=== PATIENT | female | born 1955 | race African-American/Black ===

== ENCOUNTER 2025-03-03 09:37 | Inpatient (IN) | payer OTHER ==
[~2025-03-03] VITALS: Ht 167.6 cm; Wt 74.8 kg
[2025-03-03 09:43] VITALS: O2SAT 99
[2025-03-03 10:23] LABS: BASOPHILS % 0.3 % (0.0-2.0); EOSINOPHILS % 0.3 % (0.0-5.0); HEMATOCRIT. 35.5 % (36.0-48.0); HEMOGLOBIN. 11.7 g/dL (12.0-16.0); LYMPHOCYTES % 7.2 % (20.0-50.0); MEAN PLATELET VOLUME 9.7 fl (7.4-10.4); MONOCYTES % 6.0 % (2.0-8.0); NEUTROPHILS % 86.2 % (40.0-76.0); PLATELET 177 x1000/uL (130-400); RED BLOOD CELL COUNT 4.21 mill/uL (4.2-5.4); RED CELL DISTRIBUTION WIDTH 15.7 % (11.6-14.6)
[2025-03-03 10:34] LABS: CREATININE 1.6 mg/dL (0.6-1.0)
[2025-03-03 10:35] LABS: TROPONIN I HIGH SENSITIVITY 9 ng/L (3.0-34); UREA NITROGEN BLOOD 20 mg/dL (9-23)
[2025-03-03 10:36] LABS: ASPARTATE AMINOTRANSFERASE 20 IU/L (<34); BILIRUBIN DIRECT 0.2 mg/dL (<=3.0)
[2025-03-03 10:37] LABS: BILIRUBIN TOTAL 0.6 mg/dL (0.1-1.0); PROTEIN TOTAL 6.8 g/dL (6.0-8.3)
[2025-03-03] MEDS: SODIUM CHLORIDE 0.9% 1,000 ML IV ONE (11:44)
[2025-03-03 12:00] VITALS: BP 109/45; PULSE 43; RESP 18; TEMP 36.5; O2SAT 95
[2025-03-03 12:35] VITALS: BP 109/45; PULSE 43; RESP 18; TEMP 36.5292
[2025-03-03] MEDS ORDERED: GUAIFENESIN 200MG/10ML SUGAR FREE UDC PO PRN (12:45)
[2025-03-03] MEDS ORDERED: CLONIDINE 0.1MG TABLET PO PRN (12:45)
[2025-03-03] MEDS ORDERED: IPRATROPIUM/ALBUTEROL 0.5-3(2.5)MG/3ML NEB HHN PRN (12:45)
[2025-03-03] MEDS ORDERED: ACETAMINOPHEN 325MG TABLET PO PRN (12:45)
[2025-03-03] MEDS ORDERED: DOCUSATE SODIUM 100MG CAPSULE PO PRN (12:45)
[2025-03-03] MEDS ORDERED: PANTOPRAZOLE SODIUM 40 MG/VIAL IV SCH (12:52)
[2025-03-03] MEDS: DEXT 5%/0.45% NACL 1000ML 1,000 ML IV SCH ×2 (12:53→17:44)
[2025-03-03] MEDS ORDERED: LORAZEPAM 2MG/ML UD SYRINGE IV PRN ×2 (13:00→17:30)
[2025-03-03 14:08] LABS: BG BASE EXCESS -5.2 mmol/L (-2.0-3.0); BG CARBOXYHEMOGLOBIN 0.4 % (0.5-1.5); BG DEOXYHEMOGLOBIN 4.3 % (0.0-5.0); BG FRACTION INSPIRED OXYGEN 21; BG HCO3 ACT 19.4 mmol/L (21.0-28.0); BG METHEMOGLOBIN 0.3 % (0.5-1.5); BG OXYGEN SATURATION 95.7 % (94.0-98.0); BG OXYHEMOGLOBIN 95.0 % (94.0-98.0); BG PCO2 34.3 mmHg (32.0-45.0); BG PH 7.370 (7.350-7.450); BG PO2 79.3 mmHg (83.0-108.0); BG SAMPLE SITE LEFT RADIAL; BG TOTAL HEMOGLOBIN 11.4 g/dL (12.0-16.0); BG VENT MODE ROOM AIR
[2025-03-03 14:56] LABS: FOLIC ACID (FOLATE) SERUM > 20.00 ng/mL (>5.38); VITAMIN B12 SERUM 833 pg/mL (211-911)
[2025-03-03] MEDS: PANTOPRAZOLE SODIUM 40 MG/VIAL IV SCH (17:44)
[2025-03-03] MEDS ORDERED: DEXT 5%/0.9% NACL 1,000 ML IV SCH (17:45)
[2025-03-03] MEDS: ENOXAPARIN 40MG/0.4ML SYR SUBCUT SCH (17:46)
[2025-03-03 20:00] VITALS: BP 126/60; PULSE 50; RESP 19; TEMP 36.3; O2SAT 95
[2025-03-03] MEDS: CEFTRIAXONE 1GM/50ML 50 ML IV SCH (22:42)
[2025-03-03] MEDS: AZITHROMYCIN 500MG/250ML 250 ML IV SCH (22:42)
[2025-03-04] VITALS (10 sets, daily range): BP systolic 91–142; BP diastolic 53–103; PULSE 43–49; RESP 13–18; TEMP 36.1–36.8; O2SAT 94–100
[2025-03-04 00:37] LABS: TROPONIN I HIGH SENSITIVITY 13 ng/L (3.0-34)
[2025-03-04 01:33] LABS: CLARITY URINE CLEAR (CLEAR); COLOR URINE YELLOW (YELLOW); GLUCOSE URINE NEGATIVE (NEGATIVE); KETONES URINE 1+ (NEGATIVE); LEUKOCYTE ESTERASE URINE 2+ (NEGATIVE); NITRITE URINE POSITIVE (NEGATIVE); OCCULT BLOOD URINE TRACE (NEGATIVE); PH URINE 6.5 (4.5-8.0); PROTEIN URINE 1+ (NEGATIVE); SPECIFIC GRAVITY URINE 1.017 (1.005-1.030); UROBILINOGEN URINE 1.0 E.U./dL (0.2-1.0)
[2025-03-04 01:49] LABS: BACTERIA URINE 1+; SQUAMOUS EPITHELIAL CELL URINE 2+ /lpf (RARE/1+)
[2025-03-04 01:55] LABS: *AMPHETAMINES SCREEN URINE NEGATIVE (NEGATIVE); *BARBITURATES SCREEN URINE NEGATIVE (NEGATIVE); *BENZODIAZEPINES SCREEN URINE NEGATIVE (NEGATIVE); *COCAINE SCREEN URINE NEGATIVE (NEGATIVE); CANNABINOID URINE SCREEN NEGATIVE (NEGATIVE); ECSTASY MDMA SCREEN URINE CONF.TEST INDICATED (NEGATIVE); METHADONE URINE SCREEN NEGATIVE (NEGATIVE); OPIATES URINE SCREEN NEGATIVE (NEGATIVE); PHENCYCLIDINE URINE SCREEN NEGATIVE (NEGATIVE)
[2025-03-04 08:00] LABS: HEMATOCRIT. 31.0 % (36.0-48.0); HEMOGLOBIN. 10.1 g/dL (12.0-16.0); MEAN PLATELET VOLUME 10.4 fl (7.4-10.4); PLATELET 149 x1000/uL (130-400); RED BLOOD CELL COUNT 3.70 mill/uL (4.2-5.4); RED CELL DISTRIBUTION WIDTH 15.2 % (11.6-14.6)
[2025-03-04 08:20] LABS: CREATININE 1.3 mg/dL (0.6-1.0); UREA NITROGEN BLOOD 16.0 mg/dL (9-23)
[2025-03-04 08:21] LABS: T4 FREE 0.94 ng/dL (0.89-1.76)
[2025-03-04] MEDS ORDERED: LEVETIRACETAM 1,000MG in NACL 100ML PREMIX IV ONE (10:15)
[2025-03-04 10:45] LABS: BG BASE EXCESS -1.0 mmol/L (-2.0-3.0); BG CARBOXYHEMOGLOBIN 0.9 % (0.5-1.5); BG DEOXYHEMOGLOBIN 3.6 % (0.0-5.0); BG FRACTION INSPIRED OXYGEN 21; BG HCO3 ACT 22.5 mmol/L (21.0-28.0); BG METHEMOGLOBIN 0.3 % (0.5-1.5); BG OXYGEN SATURATION 96.4 % (94.0-98.0); BG OXYHEMOGLOBIN 95.2 % (94.0-98.0); BG PCO2 33.4 mmHg (32.0-45.0); BG PH 7.446 (7.350-7.450); BG PO2 78.7 mmHg (83.0-108.0); BG SAMPLE SITE LEFT RADIAL; BG TOTAL HEMOGLOBIN 11.4 g/dL (12.0-16.0); BG VENT MODE ROOM AIR
[2025-03-04 11:15] LABS: BAND% 3.0 % (1.0-6.0); LYMPHOCYTES % MANUAL 5.0 % (20.0-60.0); MONOCYTES % MANUAL 6.0 % (2.0-8.0); NEUTROPHILS % MANUAL 86.0 % (45.0-75.0); PLATELET ESTIMATE NORMAL
[2025-03-04] MEDS: LEVETIRACETAM 1000MG PREMIX 100 ML IV NR (12:21)
[2025-03-04] MEDS: SODIUM CHLORIDE 0.9% 1,000 ML IV SCH (12:21)
[2025-03-04] MEDS: POTASSIUM CHLORIDE 20MEQ TABLET SR PO SCH (12:21)
[2025-03-04] MEDS: THIAMINE HCL 200 MG in SODIUM CHLORIDE 0.9% 98 ML IV SCH (12:23)
[2025-03-04 15:04] LABS: PHOSPHORUS 2.5 mg/dL (2.5-4.9)
[2025-03-04] MEDS: CEFTRIAXONE 1GM/50ML 50 ML IV SCH (20:13)
[2025-03-04] MEDS: LEVETIRACETAM 500MG PREMIX 100ML IV SCH (20:13)
[2025-03-04] MEDS: AZITHROMYCIN 500MG/250ML 250 ML IV SCH (20:14)
[2025-03-04] MEDS ORDERED: LEVETIRACETAM 500MG in NACL 100ML PREMIX IV SCH (21:00)
[2025-03-05] VITALS (20 sets, daily range): BP systolic 102–140; BP diastolic 61–96; PULSE 41–71; RESP 12–24; TEMP 36.2–37.1; O2SAT 96–100
[2025-03-05 07:03] LABS: CREATININE 1.1 mg/dL (0.6-1.0)
[2025-03-05 07:05] LABS: UREA NITROGEN BLOOD 9 mg/dL (9-23)
[2025-03-05 07:06] LABS: PHOSPHORUS 2.1 mg/dL (2.5-4.9)
[2025-03-05 07:18] LABS: BASOPHILS % 0.3 % (0.0-2.0); EOSINOPHILS % 1.0 % (0.0-5.0); HEMATOCRIT. 32.1 % (36.0-48.0); HEMOGLOBIN. 10.2 g/dL (12.0-16.0); LYMPHOCYTES % 11.5 % (20.0-50.0); MEAN PLATELET VOLUME 10.7 fl (7.4-10.4); MONOCYTES % 7.0 % (2.0-8.0); NEUTROPHILS % 80.2 % (40.0-76.0); PLATELET 115 x1000/uL (130-400); RED BLOOD CELL COUNT 3.71 mill/uL (4.2-5.4); RED CELL DISTRIBUTION WIDTH 16.3 % (11.6-14.6)
[2025-03-05] MEDS: POTASSIUM PHOSPHATE 30 MMOL in DEXT 5% WATER 490 ML IV NR (11:50)
[2025-03-05] MEDS: QUETIAPINE FUMARATE 25MG TABLET PO SCH (20:42)
[2025-03-06] VITALS (13 sets, daily range): BP systolic 111–153; BP diastolic 66–90; PULSE 64–78; RESP 12–24; TEMP 36.3–37.7; O2SAT 97–100
[2025-03-06 05:44] LABS: CREATININE 1.1 mg/dL (0.6-1.0)
[2025-03-06 05:45] LABS: UREA NITROGEN BLOOD 7 mg/dL (9-23)
[2025-03-06 05:47] LABS: PHOSPHORUS 2.9 mg/dL (2.5-4.9)
[2025-03-06 05:58] LABS: BASOPHILS % 0.4 % (0.0-2.0); EOSINOPHILS % 1.2 % (0.0-5.0); HEMATOCRIT. 36.1 % (36.0-48.0); HEMOGLOBIN. 11.4 g/dL (12.0-16.0); LYMPHOCYTES % 11.6 % (20.0-50.0); MEAN PLATELET VOLUME 10.9 fl (7.4-10.4); MONOCYTES % 6.4 % (2.0-8.0); NEUTROPHILS % 80.4 % (40.0-76.0); PLATELET 133 x1000/uL (130-400); RED BLOOD CELL COUNT 4.19 mill/uL (4.2-5.4); RED CELL DISTRIBUTION WIDTH 16.6 % (11.6-14.6)
[2025-03-06] MEDS ORDERED: IOHEXOL-300 100 ML BOTTLE ONE (07:02)
[2025-03-06] MEDS: KCL 20MEQ/100ML X 2 FOR TOTAL KCL 40MEQ/200ML IV SCH (12:53)
[2025-03-06] MEDS ORDERED: POTASSIUM CHLORIDE 40 MEQ in DEXT 5% WATER 230 ML IV SCH (13:00)
[2025-03-06] MEDS: DOCUSATE SODIUM SUGAR FREE 100MG/10ML UDC NG PRN (17:54)
[2025-03-07] VITALS (12 sets, daily range): BP systolic 111–167; BP diastolic 71–100; PULSE 70–81; RESP 14–17; TEMP 36.6–37; O2SAT 94–100
[2025-03-07 05:37] LABS: CREATININE 1.1 mg/dL (0.6-1.0)
[2025-03-07 05:38] LABS: UREA NITROGEN BLOOD 9 mg/dL (9-23)
[2025-03-07 05:40] LABS: PHOSPHORUS 3.2 mg/dL (2.5-4.9)
[2025-03-07 05:42] LABS: T4 FREE 0.85 ng/dL (0.89-1.76)
[2025-03-07 05:59] LABS: BASOPHILS % 0.5 % (0.0-2.0); EOSINOPHILS % 0.9 % (0.0-5.0); HEMATOCRIT. 33.8 % (36.0-48.0); HEMOGLOBIN. 10.9 g/dL (12.0-16.0); LYMPHOCYTES % 7.9 % (20.0-50.0); MEAN PLATELET VOLUME 11.1 fl (7.4-10.4); MONOCYTES % 7.9 % (2.0-8.0); NEUTROPHILS % 82.8 % (40.0-76.0); PLATELET 135 x1000/uL (130-400); RED BLOOD CELL COUNT 4.03 mill/uL (4.2-5.4); RED CELL DISTRIBUTION WIDTH 16.2 % (11.6-14.6)
[2025-03-07] MEDS: DEXTROSE 5% WATER 1,000 ML IV SCH (06:16)
[2025-03-07] MEDS: ACETAMINOPHEN 325MG TABLET PO PRN (10:49)
[2025-03-07] MEDS: LORAZEPAM 2MG/ML UD SYRINGE IV PRN (15:03)
[2025-03-07] MEDS: DOXYCYCLINE 100MG/100ML 100 ML IV SCH (17:04)
[2025-03-08] VITALS (12 sets, daily range): BP systolic 105–163; BP diastolic 69–120; PULSE 65–73; RESP 11–22; TEMP 36.2–37; O2SAT 95–100
[2025-03-08] MEDS: FAMOTIDINE 20MG/2ML VIAL IV SCH (10:24)
[2025-03-08 19:27] LABS: SODIUM URINE RANDOM 72 mEq/L
[2025-03-08] MEDS ORDERED: LORAZEPAM 2MG/ML UD SYRINGE IV PRN (20:15)
[2025-03-08 20:36] LABS: OSMOLALITY URINE 338 mOsm/kg (500-850)
[2025-03-09] VITALS (12 sets, daily range): BP systolic 128–155; BP diastolic 69–98; PULSE 58–77; RESP 12–19; TEMP 36.3–37.2; O2SAT 97–100
[2025-03-09] MEDS: LORAZEPAM 2MG/ML UD SYRINGE IV PRN (02:20)
[2025-03-09 04:08] LABS: LITHIUM SERUM 2.2 mmol/L (0.5-1.2)
[2025-03-09 07:33] LABS: BASOPHILS % 0.8 % (0.0-2.0); EOSINOPHILS % 3.6 % (0.0-5.0); HEMATOCRIT. 32.0 % (36.0-48.0); HEMOGLOBIN. 10.3 g/dL (12.0-16.0); LYMPHOCYTES % 17.6 % (20.0-50.0); MEAN PLATELET VOLUME 11.8 fl (7.4-10.4); MONOCYTES % 5.9 % (2.0-8.0); NEUTROPHILS % 72.1 % (40.0-76.0); PLATELET 124 x1000/uL (130-400); RED BLOOD CELL COUNT 3.77 mill/uL (4.2-5.4); RED CELL DISTRIBUTION WIDTH 16.6 % (11.6-14.6)
[2025-03-09 07:52] LABS: CREATININE 0.9 mg/dL (0.6-1.0); UREA NITROGEN BLOOD 12 mg/dL (9-23)
[2025-03-09 07:54] LABS: PHOSPHORUS 2.9 mg/dL (2.5-4.9)
[2025-03-09] MEDS: QUETIAPINE FUMARATE 25MG TABLET PO SCH (09:46)
[2025-03-09] MEDS: POTASSIUM CHLORIDE 20MEQ/PACKET PO NR (10:21)
[2025-03-10] VITALS (12 sets, daily range): BP systolic 109–159; BP diastolic 85–111; PULSE 57–80; RESP 11–21; TEMP 36.6–37.1; O2SAT 89–100
[2025-03-10 07:25] LABS: BASOPHILS % 0.6 % (0.0-2.0); HEMOGLOBIN. 10.4 g/dL (12.0-16.0)
[2025-03-10 07:27] LABS: EOSINOPHILS % 2.6 % (0.0-5.0); HEMATOCRIT. 31.4 % (36.0-48.0); LYMPHOCYTES % 18.0 % (20.0-50.0); MEAN PLATELET VOLUME 11.3 fl (7.4-10.4); MONOCYTES % 8.5 % (2.0-8.0); NEUTROPHILS % 70.3 % (40.0-76.0); PLATELET 143 x1000/uL (130-400); RED BLOOD CELL COUNT 3.78 mill/uL (4.2-5.4); RED CELL DISTRIBUTION WIDTH 16.2 % (11.6-14.6)
[2025-03-10] MEDS ORDERED: LITHTAB PO (07:28)
[2025-03-10] MEDS ORDERED: CARB-32 MT (07:28)
[2025-03-10] MEDS ORDERED: VENL225T3 PO (07:28)
[2025-03-10] MEDS ORDERED: TRAZ-252 MT (07:28)
[2025-03-10] MEDS ORDERED: CARV12.545 MT (07:28)
[2025-03-10] MEDS ORDERED: BUPR100T13 PO (07:28)
[2025-03-10 07:52] LABS: CREATININE 1.0 mg/dL (0.6-1.0); UREA NITROGEN BLOOD 13 mg/dL (9-23)
[2025-03-10 07:54] LABS: PHOSPHORUS 4.1 mg/dL (2.5-4.9)
[2025-03-10 08:02] LABS: INR 1.1
[2025-03-10] MEDS: MAGNESIUM 2 G PREMIX 50 ML IV SCH (15:21)
[2025-03-11] VITALS (12 sets, daily range): BP systolic 125–157; BP diastolic 83–120; PULSE 53–81; RESP 13–19; TEMP 36.1–37.2; O2SAT 74–100
[2025-03-11 06:48] LABS: BASOPHILS % 0.7 % (0.0-2.0); EOSINOPHILS % 2.9 % (0.0-5.0); HEMATOCRIT. 32.0 % (36.0-48.0); HEMOGLOBIN. 10.4 g/dL (12.0-16.0); LYMPHOCYTES % 19.4 % (20.0-50.0); MEAN PLATELET VOLUME 11.5 fl (7.4-10.4); MONOCYTES % 10.2 % (2.0-8.0); NEUTROPHILS % 66.8 % (40.0-76.0); PLATELET 136 x1000/uL (130-400); RED BLOOD CELL COUNT 3.80 mill/uL (4.2-5.4); RED CELL DISTRIBUTION WIDTH 16.0 % (11.6-14.6)
[2025-03-11 07:02] LABS: UREA NITROGEN BLOOD 12 mg/dL (9-23)
[2025-03-11 07:03] LABS: PHOSPHORUS 3.8 mg/dL (2.5-4.9)
[2025-03-11 07:09] LABS: LITHIUM SERUM 0.3 mmol/L (0.5-1.2)
[2025-03-11 07:47] LABS: CREATININE 0.4 mg/dL (0.6-1.0)
[2025-03-11] MEDS ORDERED: LIDOCAINE HCL 1% 10 MG/ML 10ML VIAL ONE (08:06)
[2025-03-11] MEDS: HALOPERIDOL 5MG TABLET PO NR (09:18)
[2025-03-11] MEDS: HALOPERIDOL LACTATE 5MG/ML VIAL IM NR (09:38)
[2025-03-11 09:46] LABS: CSF APPEARANCE CLEAR (CLEAR); CSF TOTAL VOLUME 25.0 mL
[2025-03-11 10:06] LABS: GLUCOSE CSF 63 mg/dL (41-75)
[2025-03-12] VITALS: BP 162/135; PULSE 80; RESP 17; TEMP 36.3
[2025-03-12 04:00] VITALS: BP 146/95; PULSE 79; RESP 12; TEMP 37.1; O2SAT 98
[2025-03-12 07:09] LABS: BASOPHILS % 0.6 % (0.0-2.0); EOSINOPHILS % 2.4 % (0.0-5.0); HEMATOCRIT. 33.2 % (36.0-48.0); HEMOGLOBIN. 10.6 g/dL (12.0-16.0); LYMPHOCYTES % 19.6 % (20.0-50.0); MEAN PLATELET VOLUME 11.9 fl (7.4-10.4); MONOCYTES % 10.8 % (2.0-8.0); NEUTROPHILS % 66.6 % (40.0-76.0); PLATELET 125 x1000/uL (130-400); RED BLOOD CELL COUNT 3.89 mill/uL (4.2-5.4); RED CELL DISTRIBUTION WIDTH 16.7 % (11.6-14.6)
[2025-03-12 07:20] LABS: CREATININE 0.9 mg/dL (0.6-1.0)
[2025-03-12 07:21] LABS: UREA NITROGEN BLOOD 9 mg/dL (9-23)
[2025-03-12 07:22] LABS: PHOSPHORUS 3.9 mg/dL (2.5-4.9)
[2025-03-12 08:00] VITALS: BP 162/148; PULSE 72; RESP 16; TEMP 36.8
[2025-03-12 12:00] VITALS: BP 134/79; PULSE 70; RESP 18; O2SAT 96
[2025-03-12 16:00] VITALS: BP 125/76; PULSE 73; RESP 16; TEMP 36.2; O2SAT 99
[2025-03-12 20:00] VITALS: BP 156/95; PULSE 78; RESP 18; TEMP 36.5; O2SAT 100
[2025-03-13] VITALS: BP 169/89; PULSE 84; RESP 19; TEMP 36.4; O2SAT 100
[2025-03-13 04:00] VITALS: BP_SYST 128; BP_SYST 136; BP_DIAS 82; PULSE 81; RESP 20; TEMP 36.2; O2SAT 97
[2025-03-13 07:49] VITALS: BP 140/86; PULSE 79; RESP 20; TEMP 36.4; O2SAT 99
[2025-03-13 11:59] VITALS: BP 129/74; PULSE 74; RESP 20; TEMP 36.2
[2025-03-13 16:15] VITALS: BP 138/85; PULSE 75; RESP 19; TEMP 36.4; O2SAT 95
[2025-03-13 20:00] VITALS: BP 157/87; RESP 18; TEMP 36.9; O2SAT 97
[2025-03-14] VITALS: BP 142/85; RESP 18; TEMP 36.9; O2SAT 98
[2025-03-14 04:00] VITALS: BP 120/49; RESP 18; TEMP 36.3; O2SAT 95
[2025-03-14] MEDS ORDERED: LORAZEPAM 2MG/ML UD SYRINGE IV PRN (04:15)
[2025-03-14] MEDS: LORAZEPAM 2MG/ML UD SYRINGE IV PRN (04:19)
[2025-03-14 05:54] LABS: CREATININE 0.8 mg/dL (0.6-1.0)
[2025-03-14 05:55] LABS: UREA NITROGEN BLOOD 10 mg/dL (9-23)
[2025-03-14 05:57] LABS: PHOSPHORUS 4.0 mg/dL (2.5-4.9)
[2025-03-14 06:06] LABS: BASOPHILS % 0.7 % (0.0-2.0); EOSINOPHILS % 1.8 % (0.0-5.0); HEMATOCRIT. 32.6 % (36.0-48.0); HEMOGLOBIN. 10.4 g/dL (12.0-16.0); LYMPHOCYTES % 23.0 % (20.0-50.0); MEAN PLATELET VOLUME 11.8 fl (7.4-10.4); MONOCYTES % 12.5 % (2.0-8.0); NEUTROPHILS % 62.0 % (40.0-76.0); PLATELET 174 x1000/uL (130-400); RED BLOOD CELL COUNT 3.83 mill/uL (4.2-5.4); RED CELL DISTRIBUTION WIDTH 16.2 % (11.6-14.6)
[2025-03-14 07:45] VITALS: BP 138/107; PULSE 83; RESP 18; TEMP 36.2; O2SAT 100
[2025-03-14 11:38] VITALS: BP 138/77; PULSE 72; RESP 20; TEMP 36.2; O2SAT 100
[2025-03-14 15:54] VITALS: BP 137/79; PULSE 73; RESP 18; TEMP 36.5; O2SAT 100
[2025-03-15] VITALS: BP 144/99; PULSE 82; RESP 19; TEMP 36.3; O2SAT 100
[2025-03-15 04:00] VITALS: BP 143/90; PULSE 66; RESP 18; TEMP 36.1; O2SAT 99
[2025-03-15 06:48] LABS: CREATININE 0.8 mg/dL (0.6-1.0)
[2025-03-15 06:49] LABS: UREA NITROGEN BLOOD 9 mg/dL (9-23)
[2025-03-15 06:51] LABS: PHOSPHORUS 3.8 mg/dL (2.5-4.9)
[2025-03-15 07:39] VITALS: BP 122/90; PULSE 61; RESP 19; TEMP 35.9; O2SAT 100
[2025-03-15 09:07] LABS: HEMATOCRIT. 31.5 % (36.0-48.0); HEMOGLOBIN. 9.8 g/dL (12.0-16.0); MEAN PLATELET VOLUME 12.2 fl (7.4-10.4); PLATELET 175 x1000/uL (130-400); RED BLOOD CELL COUNT 3.66 mill/uL (4.2-5.4); RED CELL DISTRIBUTION WIDTH 17.1 % (11.6-14.6)
[2025-03-15 12:04] VITALS: BP 111/88; PULSE 76; RESP 18; TEMP 36.4; O2SAT 95
[2025-03-15] MEDS: POTASSIUM CHLORIDE 20MEQ/PACKET NG NR (12:50)
[2025-03-15] MEDS ORDERED: POTASSIUM CHLORIDE 20MEQ TABLET SR PO SCH (13:00)
[2025-03-15 13:07] LABS: VDRL CSF Non Reactive (Non Rea:<1:1)
[2025-03-15 15:32] VITALS: BP 135/94; PULSE 78; RESP 19; TEMP 36.3; O2SAT 98
[2025-03-15 18:00] LABS: EOSINOPHILS % MANUAL 3.0 % (0.0-5.0); LYMPHOCYTES % MANUAL 39.0 % (20.0-60.0); MONOCYTES % MANUAL 11.0 % (2.0-8.0); NEUTROPHILS % MANUAL 47.0 % (45.0-75.0); PLATELET ESTIMATE NORMAL
[2025-03-15 20:00] VITALS: BP 144/87; PULSE 80; RESP 20; TEMP 36.3; O2SAT 99
[2025-03-16] VITALS: BP 152/86; PULSE 85; RESP 19; TEMP 36.1; O2SAT 99
[2025-03-16 04:00] VITALS: BP 160/90; PULSE 87; RESP 18; TEMP 36.6; O2SAT 100
[2025-03-16] MEDS: HYDRALAZINE 20MG/ML VIAL IV PRN (04:06)
[2025-03-16 08:00] VITALS: BP 149/90; PULSE 90; RESP 16; TEMP 36.9; O2SAT 100
[2025-03-16 12:00] VITALS: BP 151/84; PULSE 85; RESP 16; TEMP 37.2; O2SAT 100
[2025-03-16 16:00] VITALS: BP 147/89; PULSE 89; RESP 18; TEMP 36.7; O2SAT 99
[2025-03-16 20:00] VITALS: BP 100/78; PULSE 98; RESP 18; TEMP 36.4; O2SAT 97
[2025-03-16 22:40] LABS: BASOPHILS % 0.4 % (0.0-2.0); EOSINOPHILS % 1.3 % (0.0-5.0); HEMATOCRIT. 32.6 % (36.0-48.0); HEMOGLOBIN. 10.5 g/dL (12.0-16.0); LYMPHOCYTES % 10.0 % (20.0-50.0); MEAN PLATELET VOLUME 11.5 fl (7.4-10.4); MONOCYTES % 10.1 % (2.0-8.0); NEUTROPHILS % 78.2 % (40.0-76.0); PLATELET 231 x1000/uL (130-400); RED BLOOD CELL COUNT 3.82 mill/uL (4.2-5.4); RED CELL DISTRIBUTION WIDTH 16.6 % (11.6-14.6)
[2025-03-16 22:54] LABS: CREATININE 0.8 mg/dL (0.6-1.0); UREA NITROGEN BLOOD 6 mg/dL (9-23)
[2025-03-17] VITALS: BP 103/75; PULSE 101; RESP 18; TEMP 36.5; O2SAT 97
[2025-03-17 04:00] VITALS: BP 132/101; PULSE 91; RESP 18; TEMP 36.4; O2SAT 98
[2025-03-17 06:39] LABS: BASOPHILS % 0.6 % (0.0-2.0); EOSINOPHILS % 2.1 % (0.0-5.0); HEMATOCRIT. 34.0 % (36.0-48.0); HEMOGLOBIN. 10.8 g/dL (12.0-16.0); LYMPHOCYTES % 16.0 % (20.0-50.0); MEAN PLATELET VOLUME 11.4 fl (7.4-10.4); MONOCYTES % 13.7 % (2.0-8.0); NEUTROPHILS % 67.6 % (40.0-76.0); PLATELET 204 x1000/uL (130-400); RED BLOOD CELL COUNT 3.98 mill/uL (4.2-5.4); RED CELL DISTRIBUTION WIDTH 16.8 % (11.6-14.6)
[2025-03-17 07:31] LABS: CREATININE 0.8 mg/dL (0.6-1.0)
[2025-03-17 07:32] LABS: UREA NITROGEN BLOOD 6 mg/dL (9-23)
[2025-03-17 07:34] LABS: PHOSPHORUS 4.3 mg/dL (2.5-4.9)
[2025-03-17 08:00] VITALS: BP 129/86; PULSE 98; RESP 18; TEMP 36.4; O2SAT 95
[2025-03-17] MEDS: MAGNESIUM 2 G PREMIX 50 ML IV NR (10:47)
[2025-03-17 12:00] VITALS: BP 118/79; PULSE 61; RESP 20; TEMP 36.6; O2SAT 95
[2025-03-17 16:00] VITALS: BP 134/83; PULSE 80; RESP 18; TEMP 36.6; O2SAT 95
[2025-03-17 20:00] VITALS: BP 144/88; PULSE 75; RESP 18; TEMP 36.5; O2SAT 98
[2025-03-18] VITALS: BP 151/97; PULSE 94; RESP 18; TEMP 36.8; O2SAT 98
[2025-03-18 04:00] VITALS: BP 107/59; PULSE 81; RESP 18; TEMP 36.7; O2SAT 97
[2025-03-18 08:12] VITALS: BP 145/81; PULSE 80; RESP 18; TEMP 36.3
[2025-03-18 11:36] VITALS: BP 137/89; PULSE 83; RESP 18; TEMP 36.3
[2025-03-18] MEDS: ENOXAPARIN 40MG/0.4ML SYR SUBCUT SCH (12:15)
[2025-03-18] MEDS: LORAZEPAM 2MG/ML UD SYRINGE IM SCH (14:00)
[2025-03-18 16:21] VITALS: BP 125/56; PULSE 79; RESP 20; TEMP 36.3
[2025-03-18] MEDS: DEXTROSE 50% WATER 50ML SYRINGE IV SCH (16:41)
[2025-03-18] MEDS ORDERED: DEXTROSE 50% WATER 50ML SYRINGE IV PRN (17:15)
[2025-03-18] MEDS: DEXT 5%/0.9% NACL 1,000 ML IV SCH (17:30)
[2025-03-18] MEDS: BLOOD SUGAR DIAGNOSTIC STRIP TEST SCH (17:40)
[2025-03-18] MEDS: INSULIN LISPRO 100 UNITS/ML SUBCUT SCH (18:10)
[2025-03-18 19:53] VITALS: BP 116/95; PULSE 88; RESP 19; TEMP 36.3; O2SAT 96
[2025-03-19 04:11] VITALS: BP 134/77; PULSE 87; RESP 20; TEMP 36.2; O2SAT 96
[2025-03-19 07:48] VITALS: BP 139/87; PULSE 91; RESP 20; TEMP 36.3
[2025-03-19] MEDS ORDERED: CLINDAMYCIN 600MG PREMIX 50 ML IV PRN (08:00)
[2025-03-19 11:31] VITALS: BP 141/81; PULSE 86; RESP 20; TEMP 36.2
[2025-03-19] MEDS ORDERED: CEFAZOLIN SODIUM 1000MG/VIAL IV PRN (12:00)
[2025-03-19 12:17] LABS: CREATININE 0.7 mg/dL (0.6-1.0); UREA NITROGEN BLOOD 5 mg/dL (9-23)
[2025-03-19 12:19] LABS: PHOSPHORUS 4.0 mg/dL (2.5-4.9)
[2025-03-19] MEDS: KCL 20MEQ/100ML PREMIX 100 ML IV NR (15:49)
[2025-03-19 16:06] VITALS: BP 150/98; PULSE 85; RESP 20; TEMP 36.2
[2025-03-19 18:35] LABS: BASOPHILS % 0.8 % (0.0-2.0); EOSINOPHILS % 2.2 % (0.0-5.0); HEMATOCRIT. 31.2 % (36.0-48.0); HEMOGLOBIN. 9.8 g/dL (12.0-16.0); LYMPHOCYTES % 20.6 % (20.0-50.0); MEAN PLATELET VOLUME 10.9 fl (7.4-10.4); MONOCYTES % 11.5 % (2.0-8.0); NEUTROPHILS % 64.9 % (40.0-76.0); PLATELET 235 x1000/uL (130-400); RED BLOOD CELL COUNT 3.61 mill/uL (4.2-5.4); RED CELL DISTRIBUTION WIDTH 16.6 % (11.6-14.6)
[2025-03-19 18:45] LABS: INR 1.1
[2025-03-19 20:06] VITALS: BP 115/97; PULSE 108; RESP 19; TEMP 36.8; O2SAT 94
[2025-03-19] MEDS: QUETIAPINE FUMARATE 25MG TABLET NG SCH (21:02)
[2025-03-20 00:10] VITALS: BP 136/84; PULSE 89; RESP 21; TEMP 36.8; O2SAT 95
[2025-03-20 04:42] VITALS: BP 117/84; PULSE 99; RESP 19; TEMP 36.4; O2SAT 96
[2025-03-20 08:00] VITALS: BP 136/81; PULSE 96; RESP 20; TEMP 36.1; O2SAT 98
[2025-03-20 12:00] VITALS: BP 136/81; PULSE 97; RESP 18; TEMP 36.7; O2SAT 98
[2025-03-20 16:00] VITALS: BP 139/81; PULSE 98; RESP 20; TEMP 36.3; O2SAT 98
[2025-03-20 20:00] VITALS: BP 116/84; PULSE 83; RESP 21; TEMP 36.7; O2SAT 95
[2025-03-21] VITALS: BP 116/86; PULSE 97; RESP 19; TEMP 36.4; O2SAT 96
[2025-03-21 04:00] VITALS: BP 123/75; PULSE 92; RESP 20; TEMP 36.4; O2SAT 96
[2025-03-21 08:00] VITALS: BP 170/89; PULSE 96; RESP 18; TEMP 36.8; O2SAT 100
[2025-03-21 12:00] VITALS: BP 155/92; PULSE 92; RESP 18; TEMP 36.8; O2SAT 99
[2025-03-21 16:00] VITALS: BP 156/90; PULSE 92; RESP 18; TEMP 36.5; O2SAT 97
[2025-03-21 20:00] VITALS: BP 122/104; PULSE 99; RESP 20; TEMP 36.6; O2SAT 97
[2025-03-22] VITALS: BP 153/87; PULSE 97; RESP 20; TEMP 36.4; O2SAT 98
[2025-03-22 04:00] VITALS: BP 144/112; PULSE 95; RESP 20; TEMP 36.3; O2SAT 99
[2025-03-22 06:21] LABS: INR 1.0
[2025-03-22 06:24] LABS: BASOPHILS % 0.5 % (0.0-2.0); EOSINOPHILS % 2.0 % (0.0-5.0); HEMATOCRIT. 32.5 % (36.0-48.0); HEMOGLOBIN. 10.5 g/dL (12.0-16.0); LYMPHOCYTES % 19.6 % (20.0-50.0); MEAN PLATELET VOLUME 10.9 fl (7.4-10.4); MONOCYTES % 11.5 % (2.0-8.0); NEUTROPHILS % 66.4 % (40.0-76.0); PLATELET 237 x1000/uL (130-400); RED BLOOD CELL COUNT 3.83 mill/uL (4.2-5.4); RED CELL DISTRIBUTION WIDTH 15.9 % (11.6-14.6)
[2025-03-22 06:25] LABS: CREATININE 0.8 mg/dL (0.6-1.0); UREA NITROGEN BLOOD 9 mg/dL (9-23)
[2025-03-22 06:27] LABS: ASPARTATE AMINOTRANSFERASE 22 IU/L (<34); BILIRUBIN TOTAL 0.5 mg/dL (0.1-1.0); PROTEIN TOTAL 6.3 g/dL (6.0-8.3)
[2025-03-22 07:47] VITALS: BP 140/94; PULSE 84; RESP 18; TEMP 36.8; O2SAT 100
[2025-03-22] MEDS: POTASSIUM CHLORIDE 20MEQ/PACKET NG SCH (10:02)
[2025-03-22 11:45] VITALS: BP 147/84; PULSE 93; RESP 17; TEMP 36.5; O2SAT 99
[2025-03-22] MEDS ORDERED: PROPOFOL 200MG/20ML VIAL IV ONE (16:46)
[2025-03-22] MEDS ORDERED: HYDRALAZINE 20MG/ML VIAL IV PRN (18:00)
[2025-03-22 20:00] VITALS: BP 150/94; PULSE 100; RESP 20; TEMP 36.4; O2SAT 99
[2025-03-23] VITALS: BP 153/85; PULSE 94; RESP 20; TEMP 36.3; O2SAT 99
[2025-03-23 04:00] VITALS: BP 106/88; PULSE 91; RESP 18; TEMP 36.2; O2SAT 100
[2025-03-23] MEDS: METOCLOPRAMIDE HCL 10MG/2ML VIAL IV SCH (05:36)
[2025-03-23 08:00] VITALS: BP 149/71; PULSE 87; RESP 20; TEMP 36.2; O2SAT 99
[2025-03-23 12:00] VITALS: BP 145/89; PULSE 81; RESP 20; TEMP 36.2; O2SAT 96
[2025-03-23] MEDS: METOCLOPRAMIDE HCL 5MG TABLET PEG SCH (14:41)
[2025-03-23 16:00] VITALS: BP 136/89; PULSE 96; RESP 20; TEMP 36.3; O2SAT 98
[2025-03-23 20:00] VITALS: BP 150/97; PULSE 101; RESP 20; TEMP 37.3; O2SAT 98
[2025-03-23] MEDS: FAMOTIDINE 20MG TABLET PEG SCH (21:09)
[2025-03-23] MEDS: LEVETIRACETAM 500MG/5ML CUP PEG SCH (21:09)
[2025-03-24] VITALS: BP 149/81; PULSE 84; RESP 18; TEMP 37.1; O2SAT 98
[2025-03-24 04:00] VITALS: BP 168/82; PULSE 92; RESP 20; TEMP 37.2; O2SAT 98
[2025-03-24 08:00] VITALS: BP 140/87; PULSE 77; RESP 18; TEMP 36.1; O2SAT 98
[2025-03-24 12:00] VITALS: BP 135/84; PULSE 79; RESP 20; TEMP 36.2; O2SAT 100
[2025-03-24 16:00] VITALS: BP 139/80; PULSE 83; RESP 18; TEMP 36.4; O2SAT 100
[2025-03-24 20:00] VITALS: BP 145/67; PULSE 99; RESP 18; TEMP 36.5; O2SAT 100
[2025-03-25] VITALS: BP 148/80; PULSE 97; RESP 18; TEMP 36.2; O2SAT 98
[2025-03-25 04:00] VITALS: BP 161/110; PULSE 92; RESP 18; TEMP 36.3; O2SAT 98
[2025-03-25] MEDS: QUETIAPINE FUMARATE 25MG TABLET NG SCH (08:32)
[2025-03-25 09:55] VITALS: BP 151/107; PULSE 102; RESP 20; TEMP 37.1; O2SAT 98
[2025-03-25 12:00] VITALS: BP 149/81; PULSE 91; RESP 20; TEMP 36.5; O2SAT 98
[2025-03-25 16:00] VITALS: BP 143/73; PULSE 86; RESP 18; TEMP 36.2; O2SAT 97
[2025-03-25 20:00] VITALS: BP 93/81; PULSE 97; RESP 18; TEMP 36.3; O2SAT 100
[2025-03-26] VITALS (7 sets, daily range): BP systolic 115–166; BP diastolic 65–114; PULSE 88–97; RESP 18–20; TEMP 36.1–36.7; O2SAT 95–100
[2025-03-26] MEDS ORDERED: HYDRALAZINE 10 MG in SODIUM CHLORIDE 0.9% 49.5 ML IV PRN (12:00)
[2025-03-26] MEDS ORDERED: DOCUSATE SODIUM SUGAR FREE 100MG/10ML UDC GT PRN (12:15)
[2025-03-27] VITALS: BP 158/62; PULSE 85; RESP 20; TEMP 36.2; O2SAT 95
[2025-03-27 04:00] VITALS: BP 139/86; PULSE 88; RESP 20; TEMP 36.1; O2SAT 96
[2025-03-27 08:00] VITALS: BP 167/120; PULSE 92; RESP 16; TEMP 36.5; O2SAT 97
[2025-03-27 12:00] VITALS: BP 158/73; PULSE 94; RESP 18; TEMP 36.8; O2SAT 96
[2025-03-27 16:00] VITALS: BP 147/93; PULSE 84; RESP 17; TEMP 36.4; O2SAT 97
[2025-03-27 20:00] VITALS: BP 142/93; PULSE 91; RESP 20; TEMP 36.4; O2SAT 100
[2025-03-27] MEDS: QUETIAPINE FUMARATE 50MG TABLET NG SCH (21:12)
[2025-03-28] VITALS: BP 158/83; PULSE 97; RESP 18; TEMP 36.6; O2SAT 100
[2025-03-28 04:00] VITALS: BP 146/79; PULSE 89; RESP 20; TEMP 36.7; O2SAT 100
[2025-03-28 08:00] VITALS: BP 151/93; PULSE 87; RESP 18; TEMP 36.6; O2SAT 100
[2025-03-28 12:00] VITALS: BP 157/88; PULSE 89; RESP 18; TEMP 36.6; O2SAT 98
[2025-03-28 16:00] VITALS: BP 156/91; PULSE 92; RESP 18; TEMP 36.5; O2SAT 98
[2025-03-28 20:00] VITALS: BP 158/101; PULSE 85; RESP 19; TEMP 36.4; O2SAT 100
[2025-03-29] VITALS: BP 120/74; PULSE 84; RESP 18; TEMP 36.4; O2SAT 100
[2025-03-29 04:00] VITALS: BP 148/78; PULSE 83; RESP 17; TEMP 36.6; O2SAT 98
[2025-03-29 12:00] VITALS: BP 155/84; PULSE 78; RESP 20; TEMP 36.5; O2SAT 100
[2025-03-29 16:00] VITALS: BP 151/92; PULSE 83; RESP 18; TEMP 36.4
[2025-03-29] MEDS: DEXTROSE 50% WATER 50ML SYRINGE IV PRN (18:55)
[2025-03-29 20:00] VITALS: BP 127/80; PULSE 68; RESP 17; TEMP 36.1; O2SAT 99
[2025-03-29] MEDS: RISPERIDONE 1MG TABLET PO SCH (21:50)
[2025-03-30] VITALS: BP 156/100; PULSE 99; RESP 18; TEMP 36.1; O2SAT 100
[2025-03-30] MEDS: METOCLOPRAMIDE HCL 10MG TABLET PEG SCH (05:53)
[2025-03-30 08:00] VITALS: BP 140/70; PULSE 80; RESP 18; TEMP 36.5; O2SAT 100
[2025-03-30] MEDS: HALOPERIDOL LACTATE 5MG/ML VIAL IM SCH (11:07)
[2025-03-30 12:00] VITALS: BP 121/95; PULSE 113; RESP 22; TEMP 36.3; O2SAT 100
[2025-03-30] MEDS: LORAZEPAM 2MG/ML UD SYRINGE IM PRN (13:08)
[2025-03-30 16:00] VITALS: BP 132/75; PULSE 90; RESP 19; TEMP 35.7; O2SAT 100
[2025-03-30 20:00] VITALS: BP 141/86; PULSE 64; RESP 18; TEMP 37.4; O2SAT 95
[2025-03-31] VITALS: BP 132/86; PULSE 93; RESP 18; TEMP 36.6; O2SAT 97
[2025-03-31 04:00] VITALS: BP 151/88; PULSE 88; RESP 18; TEMP 36.9; O2SAT 95
[2025-03-31 08:00] VITALS: BP 128/75; PULSE 90; RESP 20; TEMP 36.5; O2SAT 99
[2025-03-31 12:00] VITALS: BP 120/60; PULSE 80; RESP 20; TEMP 36.2; O2SAT 97
[2025-03-31 16:00] VITALS: BP 120/55; PULSE 76; RESP 17; TEMP 35.8; O2SAT 100
[2025-03-31 20:00] VITALS: BP 134/79; PULSE 96; RESP 18; TEMP 36.7; O2SAT 96
[2025-04-01 04:00] VITALS: PULSE 60; RESP 19; TEMP 35.6; O2SAT 77
[2025-04-01 08:00] VITALS: BP 140/87; PULSE 91; RESP 14; TEMP 36.3; O2SAT 95
[2025-04-01 20:00] VITALS: BP 131/75; PULSE 88; RESP 18; TEMP 35.8; O2SAT 100
[2025-04-02] VITALS: BP_SYST 130; BP_SYST 131; BP_DIAS 75; PULSE 88; RESP 18; TEMP 35.8; O2SAT 100
[2025-04-02 04:00] VITALS: BP 149/95; PULSE 80; RESP 18; TEMP 36.3; O2SAT 98
[2025-04-02 12:00] VITALS: BP 129/75; PULSE 94; RESP 16; TEMP 36.3; O2SAT 99
[2025-04-02 16:00] VITALS: BP 89/68; PULSE 102; RESP 18; TEMP 36.4; O2SAT 100
[2025-04-02 18:35] VITALS: BP 132/76; PULSE 79; RESP 20; TEMP 36.6
[2025-04-02 20:00] VITALS: BP 120/94; PULSE 97; RESP 20; TEMP 36.6; O2SAT 98
[2025-04-03 04:00] VITALS: BP 120/30; PULSE 87; RESP 18; TEMP 36.4; O2SAT 95
[2025-04-03 08:00] VITALS: BP 132/91; PULSE 94; RESP 19; TEMP 36; O2SAT 99
[2025-04-03 12:00] VITALS: BP 128/78; PULSE 90; RESP 20; TEMP 36.6; O2SAT 95
[2025-04-03 16:00] VITALS: BP 132/72; PULSE 89; RESP 20; TEMP 36.9; O2SAT 98
[2025-04-03 20:00] VITALS: BP 145/82; PULSE 92; RESP 18; TEMP 36.6; O2SAT 98
[2025-04-04] VITALS: BP 127/89; PULSE 99; RESP 18; TEMP 36.5; O2SAT 96
[2025-04-04 04:00] VITALS: BP 158/95; PULSE 74; RESP 18; TEMP 35.6; O2SAT 98
[2025-04-04 08:00] VITALS: BP 110/80; PULSE 86; RESP 18; TEMP 36.2; O2SAT 100
[2025-04-04] MEDS ORDERED: CARV12.545 MT (10:06)
[2025-04-04] MEDS ORDERED: QUET50TA NG (10:06)
[2025-04-04] MEDS ORDERED: KEPPSOL PEG (10:06)
[2025-04-04] MEDS ORDERED: RISP1 PO (10:06)
[2025-04-04 12:00] VITALS: BP 150/91; PULSE 99; RESP 18; TEMP 35.8; O2SAT 100
[2025-04-04 16:00] VITALS: BP 117/75; PULSE 80; RESP 20; TEMP 36.3; O2SAT 100
[2025-04-04 20:00] VITALS: BP 159/94; PULSE 86; RESP 20; TEMP 36.2; O2SAT 98
[2025-04-05] VITALS (7 sets, daily range): BP systolic 124–143; BP diastolic 70–94; PULSE 78–100; RESP 16–19; TEMP 35.7–37.2; O2SAT 97–100
[2025-04-05] MEDS: LORAZEPAM 2MG/ML UD SYRINGE IM PRN (07:59)
[2025-04-05] MEDS: HALOPERIDOL LACTATE 5MG/ML VIAL IM PRN (08:55)
[2025-04-05] MEDS: LORAZEPAM 2MG/ML UD SYRINGE IV SCH (09:35)
[2025-04-06] VITALS: BP 136/89; PULSE 95; RESP 19; TEMP 36.7; O2SAT 98
[2025-04-06 04:00] VITALS: BP 139/92; PULSE 92; RESP 19; TEMP 35.9; O2SAT 99
[2025-04-06 08:00] VITALS: BP 149/89; PULSE 108; RESP 20; TEMP 36.3; O2SAT 99
[2025-04-06] MEDS: QUETIAPINE FUMARATE 50MG TABLET NG SCH (09:59)
== END 2025-04-06 12:22 | DRG 92 ==
LOC: ER 09:37 → EDBEDREQ 11:38 → 6WST 11:38 → EDBEDREQTM 11:38 → ENRESERV 12:51 → 5EST 03-04 10:05 → 7WST 03-12 12:19 → 6EST 03-26 11:49 → 7EST 03-29 22:35
PROVIDERS: ADMIT Student in an Organized Health Care Education/Training Program; ATTEND Student in an Organized Health Care Education/Training Program
PROC: 4A00X4Z Measurement of Central Nervous Electrical Activity, External Approach (ICD-10-PCS; 2025-03-04)
PROC: 009U3ZZ Drainage of Spinal Canal, Percutaneous Approach (ICD-10-PCS; 2025-03-11)
PROC: B01B1ZZ Fluoroscopy of Spinal Cord using Low Osmolar Contrast (ICD-10-PCS; 2025-03-11)
PROC: 0DB78ZX Excision of Stomach, Pylorus, Via Natural or Artificial Opening Endoscopic, Diagnostic (ICD-10-PCS; principal; 2025-03-22)
PROC: 0DH63UZ Insertion of Feeding Device into Stomach, Percutaneous Approach (ICD-10-PCS; 2025-03-22)
DX: G92.8 Other toxic encephalopathy (principal); E87.0 Hyperosmolality and hypernatremia; F02.82 Dementia in other diseases classified elsewhere, unspecified severity, with psychotic disturbance; I42.0 Dilated cardiomyopathy; D63.8 Anemia in other chronic diseases classified elsewhere; G20.B1 Parkinson's disease with dyskinesia, without mention of fluctuations; E86.0 Dehydration; I48.91 Unspecified atrial fibrillation; N39.0 Urinary tract infection, site not specified; N17.9 Acute kidney failure, unspecified; G31.83 Neurocognitive disorder with Lewy bodies; R56.9 Unspecified convulsions; I12.9 Hypertensive chronic kidney disease with stage 1 through stage 4 chronic kidney disease, or unspecified chronic kidney disease; N18.9 Chronic kidney disease, unspecified; F31.9 Bipolar disorder, unspecified; E03.8 Other specified hypothyroidism; E87.6 Hypokalemia; J39.8 Other specified diseases of upper respiratory tract; E86.1 Hypovolemia; F20.9 Schizophrenia, unspecified; R00.1 Bradycardia, unspecified; G97.1 Other reaction to spinal and lumbar puncture; F41.9 Anxiety disorder, unspecified; R22.1 Localized swelling, mass and lump, neck; K29.70 Gastritis, unspecified, without bleeding; Z78.1 Physical restraint status; Z79.899 Other long term (current) drug therapy; Z82.49 Family history of ischemic heart disease and other diseases of the circulatory system; Z93.1 Gastrostomy status
CPT/HCPCS: 36415; 36600; 62328; 70551; 71045; 71260; 74018; 76705; 80048; 80053; 80076; 80178; 80305; 80320; 81003; 82140; 82375; 82550; 82607; 82746; 82805; 82945; 82962; 83605; 83735; 83935; 84100; 84132; 84145; 84157; 84300; 84439; 84443; 84481; 84484; 85025; 86592; 87070; 87899; 88305; 88312; 88313; 93005; 93306; 93970; 95816; 97162; 97166; 97530; 97535; 99285; A4606; A4615; C1725; J0360; J0456; J0696; J1308; J1630; J1650; J1953; J2003; J2060; J2470; J2704; J2765; J3411; J3475; J3480; J3490; J7030; J7042; J7050; J7060; J7070; J8597; Q9967; G0480